=== PATIENT | male | born 1950 | race Caucasian/White ===

== ENCOUNTER → 2018-10-11 | Outpatient (CLI) | payer MEDICARE, OTHER ==
--- NOTE | 2018-10-11 12:15 | REP ---
BILATERAL LOWER EXTREMITY DUPLEX DOPPLER ARTERIAL ULTRASOUND: Real-time ultrasound evaluation and duplex Doppler interrogation of the bilateral lower extremity arterial systems is performed. KEMAL right is 1.1 and left 1.0. Distal aspect of the left superficial femoral artery is slightly ectatic at 1.1 cm. Left popliteal artery is mildly ectatic at 1.3 cm. Right popliteal artery is mildly ectatic at 1.1 cm, with no aneurysm. Moderate scattered plaquing is seen throughout both lower extremity arterial systems. Biphasic and triphasic waveforms are seen diffusely bilaterally with mild phasic waveform of the distal aspect of the left posterior tibial artery. 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 Electronically Signed by Dwight Cha MD 10/11/2018 03:14 P
== END ==
LOC: M RAD 09:41
PROVIDERS: ATTEND Nurse Practitioner
DX: I70.203 Unspecified atherosclerosis of native arteries of extremities, bilateral legs (principal)

== ENCOUNTER → 2019-03-01 | Outpatient (CLI) | payer OTHER ==
[~2019-03-01] MED LIST: BUPR300T92 PO; CRES40TA PO; D 1010004 PO; ELIQ5TAB PO; LISI-538 PO; METO1TAB87 PO; TRAV04OPD OP
--- NOTE | 2019-03-01 09:35 | REP ---
Splenic ultrasound for splenomegaly: The spleen is enlarged measuring 18.9 x 8.7 x 8.2 cm for a splenic index of 2993. There are no splenic masses or cysts. The left kidney is normal size measuring 11.2 x 6.0 x 6.1 cm. There is a tiny echogenic focus in the renal pelvis, possibly a small calcification, likely vascular atheroma. There is a 1 cm left renal Bosniak type 1 cyst laterally. Electronically Signed by Dwight Simpson MD 03/01/2019 09:27 A
== END ==
LOC: M RAD 08:07
PROVIDERS: ATTEND Internal Medicine
DX: D47.1 Chronic myeloproliferative disease (principal); N28.1 Cyst of kidney, acquired

== ENCOUNTER 2022-07-20 10:51 | Emergency (ER) | payer OTHER ==
[~2022-07-20] VITALS: Ht 182.9 cm; Wt 81.6 kg
[~2022-07-20 10:51] MED LIST changes: +AMOX875T2; +ASPI81CH48 PO; +COVI100V IM; +HYDR-643 PO; -LISI-538 PO; +LISI20TA33 PO; +VITA100093 PO
[2022-07-20 10:52] VITALS: BP 99/69
[2022-07-20] MEDS ORDERED: TRAZ-252 PO (11:11)
[2022-07-20] MEDS ORDERED: XALA0.007 OP (11:11)
== END 2022-07-20 15:35 | disposition left against medical advice (07) ==
LOC: M ED 15:22
DX: Z53.21 Procedure and treatment not carried out due to patient leaving prior to being seen by health care provider (principal)

== ENCOUNTER → 2023-03-02 | Outpatient (CLI) | payer OTHER, MEDICARE ==
[~2023-03-02] MED LIST changes: +GABA-282; +HYDR500C PO; +HYDR500C3 PO; +TRAZ-252 PO; +XALA0.007 OP
== END ==
LOC: M RAD 08:47
PROVIDERS: ATTEND Internal Medicine Medical Oncology
DX: R16.0 Hepatomegaly, not elsewhere classified (principal); D47.1 Chronic myeloproliferative disease